=== PATIENT | male | born 1945 | race Two or more races ===

== ENCOUNTER 2023-05-01 22:38 | Emergency (ER) | payer OTHER ==
[~2023-05-01] VITALS: Ht 182.9 cm; Wt 75.0 kg
[2023-05-02 00:07] LABS: Basophils # (auto) 0 10 ^3/uL (0-0.2); Eosinophils # (auto) 0 10 ^3/uL (0-0.8); Eosinophils % (auto) 0.1 % (0.0-7.0); Hematocrit 38.8 % (41.0-53.0); Hemoglobin 12.8 g/dL (13.5-17.5); Lymphocytes # (auto) 0.6 10 ^3/uL (0.4-5.4); Monocytes # (auto) 0.2 10 ^3/uL (0-1.3); Red Cell Distribution Width 13.5 % (11.8-14.3); White Blood Cell 4.7 10^3/uL (4.4-10.8)
[2023-05-02 00:10] LABS: Basophils % (auto) 0.5 % (0.0-2.0); Lymphocytes % (auto) 11.9 % (10.0-50.0); Mean Corpuscular Hemoglobin 33.8 pg (28.0-32.0); Mean Corpuscular Volume 102.4 fL (80.0-100.0); Monocytes % (auto) 4.1 % (0.0-12.0); Neutrophils % (auto) 83.4 % (37.0-80.0); Nucleated Red Blood Cells % 0.1 %; Red Blood Cells 3.79 10^6/uL (4.5-5.90)
[2023-05-02 00:22] LABS: Alanine Aminotransferase 36 U/L (7-40); Albumin 4.5 g/dL (3.2-4.8); Alkaline Phosphatase 106 U/L (46-116); Anion Gap 9 (5-15); Aspartate Aminotransferase 39 U/L (13-40); BUN/Creatinine Ratio 16.1 (10.0-20.0); Blood Urea Nitrogen 23 mg/dL (9-23); Calcium 8.1 mg/dL (8.7-10.4); Carbon Dioxide 20 mmol/L (20-30); Chloride 107 mmol/L (98-107); Glucose 105 mg/dL (74-106); Potassium 4.8 mmol/L (3.5-5.1); Sodium 136 mmol/L (136-145)
[2023-05-02 00:23] LABS: Bilirubin, Total 0.3 mg/dL (0.2-1.0); Total Protein 7.2 g/dL (5.7-8.2)
[2023-05-02 01:30] VITALS: PULSE 83; RESP 14; O2SAT 96
[2023-05-02] MEDS: ACCU-CHEK COMFORT CURVE STRIP VI SCH ×8 (02:51→13:30)
[2023-05-02] MEDS: DEXTROSE (50%) 50ML SYRG IV PRN ×2 (02:51→07:56)
[2023-05-02] MEDS ORDERED: hydrALAZINE HCL 20 MG/ML VL ONE (03:04)
[2023-05-02] MEDS ORDERED: hydrALAZINE HCL 20 MG/ML VL IV ONE ×2 (03:15→05:45)
[2023-05-02] MEDS ORDERED: DEXTROSE (50%) 50ML SYRG IV ONE ×2 (03:15→10:45)
[2023-05-02 03:41] LABS: Urine Bacteria NONE SEEN /hpf (None Seen); Urine Blood Negative /uL (Negative); Urine Clarity Clear (Clear); Urine Color Colorless (Yellow); Urine Hyaline Cast FEW /lpf (0 - 2); Urine Protein, UAD 1+ (Negative); Urine Specific Gravity 1.017 (1.001-1.035); Urine Urobilinogen Normal (Negative); Urine WBC 1 /hpf (0 - 3); Urine pH 5.5 (5.0-8.0)
[2023-05-02] MEDS ORDERED: OCTREOTIDE ACETATE 100 MCG in SODIUM CHL 0.9% 50 ML IV ONE (04:45)
[2023-05-02] MEDS ORDERED: DEXTROSE 10% 1,000 ML IV SCH (05:00)
[2023-05-02] MEDS ORDERED: OCTREOTIDE ACETATE 500 MCG in SODIUM CHL 0.9% 99 ML IV SCH (05:00)
[2023-05-02 09:04] LABS: COVID19 ANTIGEN SOFIA FIA NEGATIVE (NEGATIVE)
[2023-05-02] MEDS: DEXTROSE 10% 1,000 ML IV SCH ×2 (11:05→13:37)
[2023-05-02 12:20] VITALS: BP 178/85; PULSE 86; RESP 17; TEMP 98.2; O2SAT 98
== END 2023-05-02 13:28 | disposition short-term general hospital (02) ==
LOC: ER 22:38 → EDBD 22:38 → ER 05-02 13:28
DX: E11.649 Type 2 diabetes mellitus with hypoglycemia without coma (principal); D53.9 Nutritional anemia, unspecified; R80.9 Proteinuria, unspecified; E11.22 Type 2 diabetes mellitus with diabetic chronic kidney disease; N18.9 Chronic kidney disease, unspecified; Z20.822 Contact with and (suspected) exposure to COVID-19
CPT/HCPCS: 36415; 80053; 81001; 82962; 85025; 87426; 96361; 96374; 96375; 96376

== ENCOUNTER 2023-06-22 20:41 | Emergency (ER) | payer OTHER ==
[~2023-06-22] VITALS: Ht 182.9 cm; Wt 77.1 kg
[2023-06-22] MEDS: D5W 5% 1,000 ML IV ONE (21:15)
[2023-06-22 21:48] LABS: Basophils # (auto) 0 10 ^3/uL (0-0.2); Basophils % (auto) 0.9 % (0.0-2.0); Eosinophils # (auto) 0 10 ^3/uL (0-0.8); Eosinophils % (auto) 0.9 % (0.0-7.0); Hematocrit 37.9 % (41.0-53.0); Hemoglobin 12.5 g/dL (13.5-17.5); Lymphocytes # (auto) 1.4 10 ^3/uL (0.4-5.4); Lymphocytes % (auto) 28.7 % (10.0-50.0); Mean Corpuscular Hgb Conc. 32.9 g/dL (32.0-36.0); Mean Corpuscular Volume 100.1 fL (80.0-100.0); Monocytes # (auto) 0.3 10 ^3/uL (0-1.3); Neutrophils # (auto) 3.1 10 ^3/uL (1.6-8.6); Neutrophils % (auto) 62.5 % (37.0-80.0); Red Blood Cells 3.78 10^6/uL (4.5-5.90); Red Cell Distribution Width 12.9 % (11.8-14.3)
[2023-06-22 21:58] LABS: INR 1.08 (0.9-1.15); Partial Thromboplastin Time 29.6 SEC (24.5-34.5); Prothrombin Time 11.3 sec (9.3-11.8)
[2023-06-22 22:01] LABS: Alanine Aminotransferase 16 U/L (7-40); Albumin 3.5 g/dL (3.2-4.8); Alkaline Phosphatase 113 U/L (46-116); Anion Gap 9 (5-15); Aspartate Aminotransferase 34 U/L (13-40); BUN/Creatinine Ratio 10.6 (10.0-20.0); Bilirubin, Total 0.2 mg/dL (0.2-1.0); Blood Urea Nitrogen 13 mg/dL (9-23); Carbon Dioxide 22 mmol/L (20-30); Chloride 111 mmol/L (98-107); Glucose 89 mg/dL (74-106); Magnesium 1.4 mg/dL (1.6-2.6); Potassium 3.4 mmol/L (3.5-5.1); Sodium 142 mmol/L (136-145)
[2023-06-22 22:21] LABS: Calcium 4.9 mg/dL (8.7-10.4)
[2023-06-22] MEDS: DEXTROSE (50%) 50ML SYRG IV ONE (22:43)
[2023-06-22 23:01] VITALS: PULSE 95; RESP 17; O2SAT 94
[2023-06-23] MEDS: CALCIUM W/VIT D (600MG/400IU) TAB PO ONE (02:45)
[2023-06-23] MEDS: CALCIUM GLUC 1,000mg/50ml-NS 50 ML IV ONE (03:02)
[2023-06-23 03:07] LABS: Urine Bacteria NONE SEEN /hpf (None Seen); Urine Blood 1+ /uL (Negative); Urine Clarity Clear (Clear); Urine Color Colorless (Yellow); Urine Protein, UAD 2+ (Negative); Urine Specific Gravity 1.013 (1.001-1.035); Urine Urobilinogen Normal (Negative); Urine WBC 1 /hpf (0 - 3)
[2023-06-23 05:57] VITALS: BP 158/89; PULSE 90; RESP 11; TEMP 98.3; O2SAT 96
== END 2023-06-23 06:00 | disposition short-term general hospital (02) ==
LOC: EDUNIT# 20:41 → EDBD 20:41 → ER 20:41
DX: E11.649 Type 2 diabetes mellitus with hypoglycemia without coma (principal)
CPT/HCPCS: 36415; 80053; 80320; 81001; 82962; 83735; 83880; 84484; 85025; 85610; 85730; 93005; 96361; 96365; 99285; J0610